=== PATIENT | male | born 1995 | race Caucasian/White ===

== ENCOUNTER 2020-09-15 19:24 | Emergency (ER) | payer OTHER, SELFPAY ==
[2020-09-15 19:28] VITALS: BP 156/96; PULSE 84; RESP 16; TEMP 36.3; O2SAT 100
--- NOTE | 2020-09-15 19:35 | PC.NURSE ---
Addendum entered by Lory Walker RN 09/15/20 19:44: patient states he did lift an air compressor this evening weighing approximately 30 pounds. Original Note: patient brought back to ED room 17 with c/o back spasms and back pain. see triage notes. no change in patient's condition since triage completed. standing in room. SO present. did not take any pain relievers today. attempted ice as directed by his chiropractor. has norco at home from recent knee surgery but was concerned on cause of pain so didnt take any. assessments documented. patient using restroom. urine specimen cup given.
--- NOTE | 2020-09-15 20:05 | ED.GENADULT ---
HPI - General Adult General Chief complaint: Back Pain/Injury Stated complaint: back spasms Time Seen by Provider: 09/15/20 19:31 Source: patient Mode of arrival: ambulatory Limitations: no limitations History of Present Illness HPI narrative: Patient presents with chief complaint of pain to the left thoracic muscles that presented 5 days ago after he woke up from sleep. Patient denies direct trauma. Patient states he is actually been less active since he lost his job due to Covid. Patient reports he has seen a chiropractor a few times but has not noted resolution in his symptoms so he presented to the emergency department. Patient states that he was noticing some improvement with warm compresses and muscle rub. Patient denies back pain or loss of range of motion but reports pain only when rotating or twisting or reaching with that side. Patient denies any direct trauma to the area or any other symptoms. Patient denies flank pain or urinary symptoms. Related Data Home Medications Medication Instructions Recorded Confirmed hydrocodone-acetaminophen 1 - 2 PO TID PRN 09/15/20 Allergies Allergy/AdvReac Type Severity Reaction Status Date / Time No Known Allergies Allergy Unverified 07/02/17 11:21 Review of Systems Review of Systems: Narrative: CONSTITUTIONAL: Denies fever, chills, or sweats. EYES: Denies visual changes, redness, or discharge. ENT: Denies rhinorrhea, congestion, sore throat, or otalgia. CARDIOVASCULAR: Denies chest pain, palpitations, or edema. RESPIRATORY: Denies cough or dyspnea. GASTROINTESTINAL: Denies abdominal pain, nausea, vomiting, or diarrhea. GENITOURINARY: Denies dysuria or hematuria. SKIN: Denies rash or itching. MUSCULOSKELETAL: Reports left-sided muscle spasming NEUROLOGIC: Denies headache, numbness, dizziness, or weakness. PSYCHIATRIC: Denies anxiety or depression. Exam Narrative: Exam Narrative: GENERAL: Well-appearing, well-nourished. HEAD: Normocephalic, atraumatic. EYES: PERRLA and EOMI. ENT: Nares clear, no rhinorrhea or epistaxis. Mucous membranes moist. Oropharynx without tonsillar hypertrophy exudate or other lesions. Bilateral TMs pearly kirkpatrick nonbulging NECK: Supple. No adenopathy or masses. No vertebral tenderness or loss of ROM. CHEST: Clear to auscultation. No respiratory distress. No wheezes rales or rhonchi HEART: Regular rate and rhythm. Normal peripheral pulses. BACK: No vertebral point tenderness. Pain elicited to left thoracic muscle with rotation. EXTREMITIES: No acute changes in ROM. No edema. SKIN: Warm, dry, no rash. NEURO: No focal deficits. Alert and oriented x3. PSYCH: Normal mood and affect. Course Vital Signs Vital signs: Vital Signs Temperature 97.4 F L 09/15/20 19:28 Pulse Rate 84 09/15/20 19:28 Respiratory Rate 16 09/15/20 19:28 Blood Pressure 156/96 H 09/15/20 19:28 Pulse Oximetry 100 09/15/20 19:28 Temperature 97.4 F L 09/15/20 19:28 Pulse Rate 78 09/15/20 20:21 Respiratory Rate 16 09/15/20 19:28 Blood Pressure 152/80 H 09/15/20 20:21 Pulse Oximetry 100 09/15/20 20:21 Medical Decision Making MDM Narrative Medical decision making narrative: Patient declined x-ray at this time. Patient does not have any real point tenderness and he is described symptoms make diagnosis of muscle spasm very unlikely. Patient instructed to take naproxen and cyclobenzaprine as instructed. 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 Instructed to follow-up sooner if there are worsening symptoms or any other emergent concerns. Patient is currently out of work at this time. Differential Diagnosis Differential Diagnosis: Sprain, strain, fracture Vital Signs Vital Signs: Vital Signs Temperature 97.4 F L 09/15/20 19:28 Pulse Rate 84 09/15/20 19:28 Respiratory Rate 16 09/15/20 19:28 Blood Pressure 156/96 H 09/15/20 19:28 Pulse Oxim
[2020-09-15] MEDS: KETOROLAC (*BKC) 60 MG/2 ML VIAL 30 MG IM (20:13)
[2020-09-15 20:21] VITALS: BP 152/80; PULSE 78; O2SAT 100
== END 2020-09-15 20:21 | disposition home or self-care (01) ==
PROVIDERS: Emergency Provider Emergency Medicine; PCP Emergency Medicine
DX: S29.012A Strain of muscle and tendon of back wall of thorax, initial encounter (principal); X58.XXXA Exposure to other specified factors, initial encounter
CPT/HCPCS: 96372; 99283; J1885

== ENCOUNTER 2022-01-21 09:29 | Outpatient (CLI) | payer OTHER, SELFPAY ==
--- NOTE | ~2022-01-21 | US_ITS ---
EXAMINATION: US abdomen limited EXAM DATE: 01/21/2022 10:09 INDICATION: R10.11 - Right upper quadrant pain. TECHNIQUE: Multiple grayscale and Doppler images of the abdomen right upper quadrant were obtained (b y a technologist who performed the scan) and subsequently reviewed. There is no prior study for shawn anderson. FINDINGS: The pancreatic head and body are normal in appearance. The pancreatic tail is not visualized. The l iver has normal echogenicity and contour. There are no focal liver lesions identified. There is no evidence of intrahepatic biliary duct dilation. Portal venous flow was seen in the hepatopedal, nor mal direction and has normal Doppler waveform. No right-sided hydronephrosis. Common bile duct measures 5 mm, which is normal. The gallbladder fossa is unremarkable. IMPRESSION: Unremarkable abdominal ultrasound exam. Reviewed, dictated and finalized at location B. NFORMAT[employer] ASSISTANT
== END 2022-01-21 09:30 | disposition home or self-care (01) ==
PROVIDERS: PCP Emergency Medicine; Visit Provider Nurse Practitioner Family
DX: R10.11 Right upper quadrant pain (principal)
CPT/HCPCS: 76705